=== PATIENT | male | born 1990 | race Caucasian/White ===

== ENCOUNTER 2021-04-13 18:40 | Emergency (ER) | payer BC ==
[2021-04-13 18:48] VITALS: BP 139/83; PULSE 89; TEMP 97.8; BMI 40.6
[2021-04-13] MEDS ORDERED: AMOX TR/POT CLAV 875MG/125MG TABLETS (FP) PO ONE (21:21)
[2021-04-13] MEDS ORDERED: DIPHTH,PERTUSS(ACELL),TET 0.5 ML DISP.SYRIN IM ONE ×3 (21:21→21:40)
[2021-04-13] MEDS ORDERED: AMOX TR/POT CLAV 875MG/125MG TABLETS (FP) ONE (21:35)
== END 2021-04-13 22:05 | disposition home or self-care (01) ==
LOC: JERFT 18:40 → JER 18:40 → JERFT 22:05
PROC: 3E0234Z Introduction of Serum, Toxoid and Vaccine into Muscle, Percutaneous Approach (ICD-10-PCS; principal; 2021-04-13)
DX: S41.152A Open bite of left upper arm, initial encounter (principal); W54.0XXA Bitten by dog, initial encounter
CPT/HCPCS: 90715; 99284-25